=== PATIENT | female | born 1985 | race Caucasian/White ===

== ENCOUNTER 2016-10-08 06:56 | Day surgery (SDC) | payer BC, MEDICAID ==
[~2016-10-08 06:56] MED LIST: RINGERS SOLUTION,LACTATED 1,000 ML IV PRN; ceFAZolin SODIUM 1 GM in DEXTROSE 5 % IN WATER 100 ML IV PRN
[2016-10-08] MEDS ORDERED: RINGERS SOLUTION,LACTATED 1,000 ML IV ONE ×3 (07:50→10:50)
[2016-10-08] MEDS ORDERED: LIDOCAINE HCL/EPINEPHRINE 50 ML VIAL IJ ONE ×3 (08:10)
--- NOTE | 2016-10-08 12:15 | OR ---
Operative Report - Dictated Report Narrative: DATE OF PROCEDURE: 10/08/2016 INDICATIONS: 30-year-old female with symptomatic uterovaginal prolapse and genuine stress urinary incontinence PREOPERATIVE DIAGNOSIS: Symptomatic uterovaginal prolapse, genuine stress urinary incontinence, POSTOPERATIVE DIAGNOSIS: Same PROCEDURE: Total vaginal hysterectomy, Anterior and posterior colporrhaphy, Perineoplasty, Transvaginal mid-urethral sling with synthetic mesh, Cystoscopy SURGEON: Basil Todd D.O. FOOD AND NUTRITION PROFESSOR: None ANESTHESIA: General ESTIMATED BLOOD LOSS: 325 mL URINE OUTPUT: 150 mL FLUID REPLACEMENT: 2200 mL SPECIMEN(S): Uterus and cervix IMPLANT/DEVICE: [employer] Advantage Fit Transvaginal Mid-Urethral Sling System REF: [id number], GTIN [id number] FINDINGS: Apical prolapse 4 cm from the hymenal ring, anterior prolapse to the hymenal ring, posterior prolapse 3 cm from the hymenal ring. Normal-appearing uterus, cervix, and ovaries. Normal-appearing ureteral orifices cc, bladder wall with hyperemic changes and varicosities. TECHNIQUE: The patient was taken to the operating room and placed in dorsal lithotomy position after adequate general anesthesia was obtained, SCDs placed and 1 g of Ancef given intravenously. The cervix was grasped with 2 single- tooth tenacula and a paracervical block was given using 1% lidocaine with epinephrine. Posterior colpotomy was performed using Matta scissors. A long weighted speculum was placed into the posterior cul-de-sac. Anterior colpotomy was performed with Matta scissors and a right angle Rosemarie retractor was placed to retract the bladder. The bladder pillars were coagulated with the LigaSure device and transected. The right uterosacral ligament was grasped with a curved Blackwell transected and Rosemarie stitch tied. The exact same was done on the other side. The remaining pedicles were then sequentially doubly coagulated and transected distally using LigaSure device and Matta scissors. The uterus was removed in total. The uterosacral ligaments were firmly attached to their origin and insertion but were stretched and lax. Using an Allis clamp, the right uterosacral ligament was grasped at the level of the ischial spine. The right corner pedicles stitch was brought through the uterosacral ligament at the level of the ischial spine and then back through the vagina and held for later use. The exact same was done on the patient's left side. The sutures were placed on tension and cystoscopy was performed to assure no kinking of the ureters. Urine was noted to spurt freely from both ureteral orifices. The vaginal cuff was closed with a series of figure-of- eight 0 Vicryl sutures. The uterosacral sutures were held to be tied later. A Scott catheter was placed into the bladder and an Allis clamp was placed at the urethrovesical junction. The vaginal mucosa of the anterior wall was injected with 1% lidocaine epinephrine solution. Scalpel was used to score the vaginal mucosa from the UV junction to about 3 cm from the vaginal apex. Using sharp and blunt dissection , the vaginal mucosa was from the bladder wall. Excess bleeding was encountered from varicosities along the left bladder wall. Hemostasis was controlled with suture. Starting at the vaginal apex, 0 Vicryl suture was placed in a running stitch plicating the bladder. A second layer was placed imbricating the original stitch. Excess vaginal mucosa was excised and the vaginal mucosa was closed to the level of the UV junction with a running 3-0 Vicryl Rapide. The vaginal introitus was grasped at the 4 and 8 o'clock position with Allis clamps and a ken-shaped wedge of vaginal mucosa and perineum was excised using a scalpel. Vaginal mucosa was dissected from the underlying endopelvic and rectovaginal fascia. The rectovaginal fascia was scarred distally to the vaginal mucosa and underlying pararectal tissue. This area was carefully dissected free allowing the rectovaginal fascia to be reapproximated to its normal anatomic position. Using 0 Vicryl suture, the rectovaginal septum was plicated to the pararectal and levator ani fascia from the vaginal apex to the vaginal introitus. The perineal body was built up and reapproximated with several [id number] 0 Vicryl sutures. These sutures also incorporated the distal end of the rectovaginal septum. Sutures were placed with 1 finger in the rectum to assure no injury to the rectal mucosa. Gloves were changed and the excess vaginal mucosa was excised. Vaginal mucosa was closed with a running 3-0 Vicryl repeat from the vaginal apex to the introitus. Same suture was used to approximate the superficial perineal body muscles and perineum. Attention was turned anteriorly where an Allis clamp was placed 1 cm from the urethral meatus and at the UV junction. Scalpel was used to score the vaginal mucosa. Using blunt dissection, a tunnel was created from the urethra to the inferior proximal pubic ramus of the patient's right side. The exact same was done on the patient's left side. Using the [employer] Advantage Fit transvaginal mid urethral sling system, the blue sleeve of the sling was placed over the trocar and inserted through the tunnel alongside the urethra posterior and cephalad to pubic rami, aiming in line with the ipsilateral shoulder. The trocar was removed and the exact same was done on the patient's left side. 250 mL of saline were placed in the bladder and cystoscopy was performed, noting no injury to the bladder. The mesh was adjusted to the correct tension using an 8 Hegar dilator in the urethra and a Kate clamp between the sling and urethra. The blue tab was cut and the plastic sleeves were removed. The mesh was cut just below the skin on either side of the mons. The vaginal mucosa was closed with 3-0 Vicryl Rapide. Scott catheter was reinserted into the bladder. The uterosacral sutures were tied and cut, bringing the vaginal apex to the level of the ischial spine. Cystoscopy was performed noting urine spurting freely from both ureteral orifices. Scott catheter was reinserted into the bladder and the vagina was packed with 2 inch iodoform gauze. The bladder was drained and the patient was transferred to postanesthesia care unit in good condition. Sponge, lap, instrument, and needle count were correct x 2. POSTOPERATIVE CONDITION: Good
[2016-10-08] MEDS ORDERED: MORPHINE SULFATE 2 MG/ML DISP.SYRIN IV PRN (12:51)
[2016-10-08] MEDS ORDERED: oxyCODONE HCL/ACETAMINOPHEN 1 TAB TABLET PO PRN (12:52)
[2016-10-08] MEDS ORDERED: IBUPROFEN 800 MG TABLET PO PRN (12:53)
[2016-10-08] MEDS ORDERED: ONDANSETRON HCL/PF 2 MG/ML VIAL IV ONE ×2 (14:57→15:44)
[2016-10-08] MEDS ORDERED: PROMETHAZINE HCL 12.5 MG in DEXTROSE 5 % IN WATER 50 ML IV ONE ×4 (14:57→17:00)
[2016-10-08] MEDS ORDERED: oxyCODONE HCL/ACETAMINOPHEN 1 TAB TABLET PO ONE (18:00)
[2016-10-08 18:48] VITALS: BP 99/56
== END 2016-10-08 06:57 | disposition home or self-care (01) ==
LOC: AMB 06:56
PROVIDERS: ATTEND Obstetrics & Gynecology
PROC: 0TSD4ZZ Reposition Urethra, Percutaneous Endoscopic Approach (ICD-10-PCS; 2016-10-08)
PROC: [UNRECOGNIZED PROCEDURE] (2016-10-08)
PROC: 0UT97ZZ Resection of Uterus, Via Natural or Artificial Opening (ICD-10-PCS; principal; 2016-10-08 08:00)
PROC: 0UTC7ZZ Resection of Cervix, Via Natural or Artificial Opening (ICD-10-PCS; 2016-10-08 08:00)
DX: N81.4 Uterovaginal prolapse, unspecified (principal); N72 Inflammatory disease of cervix uteri; N39.3 Stress incontinence (female) (male); Z68.23 Body mass index [BMI] 23.0-23.9, adult